=== PATIENT | female | born 1995 | race Two or more races ===

== ENCOUNTER 2018-01-01 17:22 | Emergency (ER) | payer OTHER ==
[~2018-01-01] VITALS: Ht 157.5 cm; Wt 68.0 kg
[2018-01-01 17:30] VITALS: BP 105/69
--- NOTE | 2018-01-01 17:40 | PHYS DOC ---
Past Medical History Past Medical History: No Pertinent History Past Surgical History: Other Additional Past Surgical Histo: wrist surgery- cyst removed Alcohol Use: None Drug Use: None Adult General Chief Complaint Chief Complaint: UPPER EXTREMITY PAIN HPI HPI Patient is a 22 year old F who presents with bleeding from her L upper arm where she had the Implanon removed on (2 days ago) by Dr. Alvarado. She states it was a difficult removal and after the procedure she had bleeding from the site that has not stopped. She has had a bandage with coban on the site but it has persisted and now she has a large contusion around the area. Review of Systems Review of Systems Constitutional: Denies fever or chills Respiratory: Denies cough or shortness of breath Cardiovascular: Denies chest pain GI: Denies abdominal pain, nausea, vomiting, Musculoskeletal: Denies back pain or joint pain. Reports upper L arm pain. Integument: Denies rash or skin lesions. Reports bleeding from post procedure site. Neurologic: Denies headache, focal weakness or sensory changes All other systems were reviewed and found to be within normal limits, except as documented in this note. Allergies Allergies Allergies Coded Allergies Type Severity Reaction Last Updated Verified No Known Drug Allergies 08/21/15 No Physical Exam Physical Exam Constitutional: Well developed, well nourished, no acute distress, non-toxic appearance. Neck: Normal range of motion, no tenderness, supple, no stridor. [] Cardiovascular:Heart rate regular rhythm, no murmur Lungs & Thorax: Bilateral breath sounds clear to auscultation Abdomen: Bowel sounds normal, soft, no tenderness, no masses, no pulsatile masses. Skin: L upper arm contusion/hematoma with small 2cm incision that is oozing bright red blood. Back: No tenderness, no CVA tenderness. Extremities: No cyanosis, no clubbing, ROM intact, no edema. Tenderness around hematoma site Neurologic: Alert and oriented X 3, normal motor function, normal sensory function, no focal deficits noted. Psychologic: Affect normal, judgement normal, mood normal. EKG EKG [] Radiology/Procedures Radiology/Procedures [] Course & Med Decision Making Course & Med Decision Making Pertinent Labs and Imaging studies reviewed. (See chart for details) The area was cleansed with betadine scrub and then bandaged with nonstick gauze and regular gauze for pressure and wrapped with DIANA wrap. Pt to hold ice to area PRN and rest. Tylenol only, no ASA or NSAIDS. If still having problems with bleeding on Wednesday, call Dr. Alvarado's office. Priscila Disclaimer Duaneon Disclaimer This electronic medical record was generated, in whole or in part, using a voice recognition dictation system. Departure Departure Impression: Primary Impression: Hematoma Additional Impression: Postoperative hematoma Disposition: HOME, SELF-CARE Condition: IMPROVED Referrals: VERÓNICA KING MD (PCP) Patient Instructions: Hematoma, [id number] Additional Instructions: Ice pack off and on, no longer then 20 minutes at a time. compression with bandage and diana keep wound clean If still bleeding on Wednesday, call Dr. [place]. Problem Qualifiers CHATA PARIKH Jan 01, 2018 17:40
== END 2018-01-01 17:58 | disposition home or self-care (01) ==
LOC: ER 17:22
DX: M96.840 Postprocedural hematoma of a musculoskeletal structure following a musculoskeletal system procedure (principal); S40.022A Contusion of left upper arm, initial encounter; Y83.1 Surgical operation with implant of artificial internal device as the cause of abnormal reaction of the patient, or of later complication, without mention of misadventure at the time of the procedure; Y92.89 Other specified places as the place of occurrence of the external cause
CPT/HCPCS: 99283

== ENCOUNTER 2019-12-04 11:00 | Emergency (ER) | payer SELFPAY ==
[~2019-12-04] VITALS: Ht 154.9 cm; Wt 77.3 kg
[2019-12-04 11:30] VITALS: BP 118/77
--- NOTE | 2019-12-04 12:04 | RAD ---
PROCEDURE: ANKLE RIGHT 3V STUDY DATE: 12/04/2019 CLINICAL INDICATION / HISTORY: Reason: fall down stairs yesterday, RT ankle pain, swelling, and bruising / Spl. Instructions: / History: . TECHNIQUE: Right ankle 3 views. COMPARISON: None FINDINGS: The ankle mortise is approximated, and the talar dome is unremarkable. The joint space widths are maintained. There is cortical irregularity on the dorsal aspect of the anterior talus, suspicious for mild impaction fracture. Otherwise no fracture or dislocation is identified. Mild diffuse soft tissue swelling is appreciated. IMPRESSION: Possible minimal impaction fracture on the dorsal aspect of the talus. Otherwise no fracture or malalignment shown. Mild associated soft tissue swelling is present at the right ankle. Electronically signed by: Luis A Daniels MD (12/04/2019 12:01 PM) [id number]
--- NOTE | 2019-12-04 13:11 | RAD ---
Examination: CT right foot without contrast HISTORY: History of injury COMPARISON: None available TECHNIQUE: Axial CT images of the right foot were performed without contrast. Coronal and sagittal reformats are performed. Exposure: One or more of the following individualized dose reduction techniques were utilized for this examination: 1. Automated exposure control 2. Adjustment of the mA and/or kV according to patient size 3. Use of iterative reconstruction technique FINDINGS: The alignment of the tarsal bones, tarsometatarsal joints, tarsophalangeal joints, interphalangeal grossly appears unremarkable. 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 There are subtle bony densities identified in the superior aspect of the distal talus and lateral aspect of the navicular bone and superior aspect of the cuboid bone and lateral superior aspect of the calcaneus could be a small avulsion fractures. Mild increased fat stranding identified laterally in the mid foot region likely secondary to injury. IMPRESSION: 1. Subtle bony densities identified in the superior aspect of the distal talus, lateral aspect of the navicular bone and superior aspect of the cuboid bone and lateral superior aspect of the calcaneus could be a small avulsion fractures. Mild increased fat stranding identified laterally in the mid foot region likely secondary to injury. Electronically signed by: Gautam Chappell MD (12/04/2019 1:09 PM) [id number]
[2019-12-04] MEDS ORDERED: HYDR-3164 PO (14:14)
[2019-12-04] MEDS ORDERED: NAPR-514 PO (14:14)
--- NOTE | 2019-12-04 14:14 | PHYS DOC ---
Past Medical History Past Medical History: No Pertinent History Past Surgical History: Other Additional Past Surgical Histo: CYST REMOVED FROM RIGHT WRIST Smoking Status: Never Smoker Alcohol Use: Occasionally Drug Use: None General Adult EDM: Chief Complaint: ANKLE PROBLEM HPI: HPI: Patient is a 24 year old female who presents to the ED today complaining of 6 out of 10 right ankle pain that began yesterday around 1400 when she rolled her ankle wearing 4 inch high heels walking down steps, she fell 2 steps down. Patient states the pain is worse on weightbearing. Describes the pain as sharp as well as throbbing worse on weightbearing. Denies anything specifically relieving the pain. Review of Systems: Review of Systems: Constitutional: Denies fever or chills. [] Musculoskeletal: Reports right ankle pain Integument: Denies rash. [] Neurologic: Denies headache, focal weakness or sensory changes. [] Psychiatric: Denies depression or anxiety. [] Heart Score: Risk Factors: Risk Factors: DM, Current or recent (<one month) smoker, HTN, HLP, family history of CAD, obesity. Risk Scores: Score 0 - 3: 2.5% MACE over next 6 weeks - Discharge Home Score 4 - 6: 20.3% MACE over next 6 weeks - Admit for Clinical Observation Score 7 - 10: 72.7% MACE over next 6 weeks - Early Invasive Strategies Allergies: Allergies: Allergies Coded Allergies Type Severity Reaction Last Updated Verified No Known Drug Allergies 08/21/15 No Physical Exam: PE: Constitutional: Well developed, well nourished, no acute distress, non-toxic appearance. [] Skin: Warm, dry, no erythema, no rash. [] Back: Right ankle with bruising on the lateral aspect. Mild swelling noted on the right ankle. Tenderness diffusely throughout the ankle worse on the lateral aspect. Full range of motion to the right ankle, foot and toes. +2 right pedal pulse. Cap refill less than 2 seconds to the toes. Extremities: No tenderness, no cyanosis, no clubbing, ROM intact, no edema. [] Neurologic: Alert and oriented X 3, normal motor function, normal sensory function, no focal deficits noted. [] Psychologic: Affect normal, judgement normal, mood normal. [] Current Patient Data: Labs: Laboratory Tests Test 12/04/19 12:30 POC Urine HCG, Qualitative Hcg negative (Negative) Vital Signs: Vital Signs Date Time Temp Pulse Resp B/P (MAP) Pulse Ox O2 Delivery O2 Flow Rate FiO2 12/04/19 11:30 98.0 86 16 118/77 (91) 99 Room Air 98.0 EKG: EKG: [] Radiology/Procedures: Radiology/Procedures: []PROCEDURE: ANKLE RIGHT 3V PROCEDURE: ANKLE RIGHT 3V STUDY DATE: 12/04/2019 CLINICAL INDICATION / HISTORY: Reason: fall down stairs yesterday, RT ankle pain, swelling, and bruising / Spl. Instructions: / History: . TECHNIQUE: Right ankle 3 views. COMPARISON: None FINDINGS: The ankle mortise is approximated, and the talar dome is unremarkable. The joint space widths are maintained. There is cortical irregularity on the dorsal aspect of the anterior talus, suspicious for mild impaction fracture. Otherwise no fracture or dislocation is identified. Mild diffuse soft tissue swelling is appreciated. IMPRESSION: Possible minimal impaction fracture on the dorsal aspect of the talus. Otherwise no fracture or malalignment shown. Mild associated soft tissue swelling is present at the right ankle. Electronically signed by: Kalus Daniels MD (12/04/2019 12:01 PM) [id number] DICTATED and SIGNED BY: KLAUS DANIELS MD DATE: 12/04/19 1201 Course & Med Decision Making: Course & Med Decision Making Pertinent Labs and Imaging studies reviewed. (See chart for details) This is a 24-year-old female patient presenting to the ED today with right ankle pain that began yesterday after she rolled her ankle wearing high heels. Right ankle x-rays interpreted by radiologist were noted for possible minimal impaction fracture on the dorsal aspect of the talus. CT of the right lower extremity was done noted for subtle bony densities identified in the superior aspect of the distal talus, lateral aspect of the navicular bone and superior aspect of the cuboid bone and lateral superior aspect of the calcaneus could be a small avulsion fractures. Mild increased fat stranding identified laterally in the mid foot region likely secondary to injury. Patient denies any back pain. Spoke with DR. Manzo he requested U splint and f/u with Foot and ankle Doctor. Information was given to patient. D.c to home. Patient was placed in a U-splint as recommended by Dr. Manzo. Splint was applied by the electronics technician apprentice, neurovascular exam done by me is normal. Ice elevation encouraged. Crutches provided. Follow-up information provided. Priscila Disclaimer: Priscila Disclaimer: This electronic medical record was generated, in whole or in part, using a voice recognition dictation system. Departure Departure Impression: Primary Impression: Fall down steps Qualified Codes: W10.8XXA - Fall (on) (from) other stairs and steps, initial encounter Additional Impressions: Fracture, talus closed Qualified Codes: S92.101A - Unspecified fracture of right talus, initial encounter for closed fracture Avulsion fracture of navicular bone of foot Qualified Codes: S92.251A - Displaced fracture of navicular [scaphoid] of right foot, initial encounter for closed fracture Calcaneus fracture, right Qualified Codes: S92.001A - Unspecified fracture of right calcaneus, initial encounter for closed fracture Disposition: HOME, SELF-CARE Condition: STABLE Referrals: NO PCP (PCP) see your paperwork for follow up information Patient Instructions: Ankle Fracture, Avulsion Fracture Additional Instructions: You have avulsion fractures of several bones in your ankle. Please contact [facility] foot [facility] ankle clinic or any other foot and ankle clinic and follow up as soon as possible. Their phone number is [phone]. Do not walk on the ankl e. Try and ice and elevate the ankle Scripts Naproxen (NAPROXEN) 500 Mg Tablet 1 TAB PO BID for pain, #20 TAB 0 Refills Prov: KAILEE DAWKINS APRN 12/04/19 Hydrocodone/Apap 5-325 (NORCO 5-325 TABLET) 1 Each Tablet 1 TAB PO Q6-8HRS PRN for PAIN, #20 TAB Prov: KAILEE DAWKINS APRN 12/04/19 Justicifation of Admission Dx: Justifications for Admission: Justification of Admission Dx: N/A KAILEE DAWKINS APRN Dec 04, 2019 14:14
== END 2019-12-04 15:16 | disposition home or self-care (01) ==
LOC: ER 11:00
DX: S92.191A Other fracture of right talus, initial encounter for closed fracture (principal); S92.251A Displaced fracture of navicular [scaphoid] of right foot, initial encounter for closed fracture; S92.001A Unspecified fracture of right calcaneus, initial encounter for closed fracture; R60.0 Localized edema; Z98.890 Other specified postprocedural states; W10.8XXA Fall (on) (from) other stairs and steps, initial encounter; Y93.89 Activity, other specified; Y92.89 Other specified places as the place of occurrence of the external cause; Y99.8 Other external cause status
CPT/HCPCS: 29515; 73610; 73700; 81025; 99284